=== PATIENT | male | born 1965 | race Caucasian/White ===

== ENCOUNTER 2017-05-17 10:04 | Emergency (ER) | payer MEDICAID ==
[~2017-05-17] VITALS: Ht 172.7 cm; Wt 87.5 kg
[2017-05-17 10:20] VITALS: BP 135/83
== END 2017-05-17 11:08 | disposition home or self-care (01) ==
LOC: ER 10:04
DX: R04.0 Epistaxis (principal); Z88.0 Allergy status to penicillin